=== PATIENT | male | born 1945 | race Caucasian/White ===

== ENCOUNTER 2017-04-01 13:27 | Emergency (ER) | payer MEDICARE, OTHER ==
[~2017-04-01] VITALS: Ht 162.6 cm; Wt 89.5 kg
[~2017-04-01 13:27] MED LIST: AMLO25TA PO; ASPI1TAB PO; ASPI325T PO; ATEN50TA2 PO; ATOR80TA59 PO; CLOP75TA2 PO; COLA100C5 PO; ERYT25TA PO; FLOM5CAP PO; GLIM2TAB PO; GLUC500T PO; IBUPOTC PO; LISI-538 PO; METF10004 PO; PANT40TA2 PO; SENN18TA PO; SIMV40TA2 PO
[2017-04-01] MEDS ORDERED: NS 1,000 ML IV SCH (14:05)
--- NOTE | 2017-04-01 15:00 | REP ---
CHEST, SINGLE VIEW: Single AP view of the chest is performed and compared to prior study of 05/01/2016. There is cardiomegaly. There is no acute infiltrate. Mediastinal silhouette is unchanged. IMPRESSION: Cardiomegaly with no evidence of acute infiltrate. Signed by Jerome Verdugo MD 04/01/2017 05:26 P
--- NOTE | 2017-04-01 15:15 | REP ---
CT BRAIN WITHOUT CONTRAST: CT brain is performed without IV contrast and compared to a prior CT and MRI brain 05/01/2016. There is mild diffuse atrophy. There is no midline shift. No mass effect is seen. 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 There is no acute hemorrhage. There is no extra-axial fluid collection. Bone window examination is unremarkable. IMPRESSION: Mild diffuse atrophy with old lacunar infarct in the nimo and old left occipital infarct. No acute hemorrhage or other acute finding. Signed by Jerome Verdugo MD 04/01/2017 05:26 P
[2017-04-01 15:31] LABS: BASO % 0.6 % (0.0-1.0); EOS # 0.2 K/mm3 (0.0-0.50); EOS % 2.3 % (0.0-3.0); LARGE UNSTAINED CELL # 0.1 K/mm3 (0.0-0.4); LARGE UNSTAINED CELL % 1.3 % (0.0-4.0); LYMPH # 0.7 K/mm3 (1.5-4.5); LYMPH % 8.9 % (24.0-44.0); MEAN CORPUSCULAR HEMOGLOBIN 30.7 pg (27.0-33.0); MEAN CORPUSCULAR HGB CONC 33.4 g/dl (32.0-36.5); MEAN CORPUSCULAR VOLUME 91.9 fl (80.0-96.0); MONO # 0.4 K/mm3 (0.0-0.8); MONO % 6.1 % (0.0-5.0); NEUTROPHILS # 5.8 K/mm3 (1.8-7.7); NEUTROPHILS % 80.8 % (36.0-66.0); PLATELET COUNT, AUTOMATED 242 k/mm3 (150-450); RED CELL DISTRIBUTION WIDTH 13.6 % (11.5-14.5); WHITE BLOOD COUNT 7.2 K/mm3 (4.0-10.0)
[2017-04-01 15:54] LABS: ALBUMIN 4.1 GM/DL (3.2-5.2); ALBUMIN/GLOBULIN RATIO 1.24 (1.00-1.93); ALKALINE PHOSPHATASE 92 U/L (45-117); ALT/SGPT 25 U/L (12-78); ANION GAP 11 MEQ/L (8-16); AST/SGOT 25 U/L (15-37); BILIRUBIN,DIRECT 0.1 MG/DL (0.0-0.2); BILIRUBIN,TOTAL 0.5 MG/DL (0.2-1.0); BLOOD UREA NITROGEN 29 MG/DL (7-18); CALCIUM LEVEL 9.7 MG/DL (8.8-10.2); CARBON DIOXIDE LEVEL 19 MEQ/L (21-32); CHLORIDE LEVEL 107 MEQ/L (98-107); CREATININE FOR GFR 1.28 MG/DL (0.70-1.30); GLOMERULAR FILTRATION RATE 58.5 (>42); POTASSIUM SERUM 4.7 MEQ/L (3.5-5.1); SODIUM LEVEL 137 MEQ/L (136-145); TOTAL PROTEIN 7.4 GM/DL (6.4-8.2)
[2017-04-01 16:02] LABS: GLUCOSE, FASTING 34 MG/DL (83-110)
[2017-04-01] MEDS ORDERED: DEXTROSE 50% 50 ML SYRINGE IV STA (16:06)
[2017-04-01 17:30] VITALS: BP 141/75
--- NOTE | 2017-04-02 09:01 | ECGEPIP ---
Stationary ECG Study [facility] - ED Test Date: 2017-04-01 Pat Name: JOSE ANTONIO HART Department: Room: - Gender: M Broadband Engineer: REESE : 1945 Requested By: ALLEGRA AGUERO Order Number: [id number] Reading MD: Viki Garvey Measurements Intervals [place] Rate: 73 P: 89 ND: 204 QRS: -18 QRSD: 87 T: 39 QT: 384 QTc: 423 Interpretive Statements SINUS RHYTHM WITH SINUS ARRHYTHMIA MINIMAL VOLTAGE CRITERIA FOR LVH, CONSIDER NORMAL VARIANT SEPTAL MYOCARDIAL INFARCTION, OF INDETERMINATE AGE ?PRIOR INFERIOR INFARCT SIMILAR 05/01/16 Electronically Signed On 04-02-2017 9:00:41 EDT by Viki Garvey
== END 2017-04-01 17:39 | disposition home or self-care (01) ==
LOC: M ED 13:27
DX: E11.649 Type 2 diabetes mellitus with hypoglycemia without coma (principal); I51.7 Cardiomegaly; I51.9 Heart disease, unspecified; I10 Essential (primary) hypertension; K21.9 Gastro-esophageal reflux disease without esophagitis; Z86.73 Personal history of transient ischemic attack (TIA), and cerebral infarction without residual deficits; Z79.82 Long term (current) use of aspirin; Z79.84 Long term (current) use of oral hypoglycemic drugs; Z79.899 Other long term (current) drug therapy

== ENCOUNTER → 2018-04-11 | Outpatient (CLI) | payer MEDICARE ==
[2018-04-11 16:38] LABS: ANION GAP 10 MEQ/L (8-16); BLOOD UREA NITROGEN 30 MG/DL (7-18); CALCIUM LEVEL 9.1 MG/DL (8.8-10.2); CARBON DIOXIDE LEVEL 23 MEQ/L (21-32); CHLORIDE LEVEL 107 MEQ/L (98-107); CREATININE FOR GFR 1.84 MG/DL (0.70-1.30); GLOMERULAR FILTRATION RATE 38.4 (>42); GLUCOSE, FASTING 179 MG/DL (70-100); PHOSPHORUS LEVEL 2.4 MG/DL (2.5-4.9); POTASSIUM SERUM 4.7 MEQ/L (3.5-5.1); SODIUM LEVEL 140 MEQ/L (136-145)
== END ==
LOC: M WUC 13:47
DX: I77.9 Disorder of arteries and arterioles, unspecified (principal)
CPT/HCPCS: 80069

== ENCOUNTER → 2018-06-19 | Outpatient (CLI) | payer MEDICARE ==
[2018-06-19 17:56] LABS: CREATININE FOR GFR 1.54 MG/DL (0.70-1.30); GLOMERULAR FILTRATION RATE 47.1 (>42)
[2018-06-19 17:56] LABS: BLOOD UREA NITROGEN 33 MG/DL (7-18)
== END ==
LOC: M WUC 13:55
DX: E11.40 Type 2 diabetes mellitus with diabetic neuropathy, unspecified (principal)
CPT/HCPCS: 82565

== ENCOUNTER → 2021-10-20 | Outpatient (CLI) | payer MEDICARE ==
[~2021-10-20] MED LIST changes: +ASPI-1 PO; -ASPI1TAB PO; -ASPI325T PO; +ASPI81TA26 PO; +ERY-250T24 PO; -ERYT25TA PO; +FLOM0.4C39 PO; -FLOM5CAP PO; -GLIM2TAB PO; +GLIM2TAB4 PO; -LISI-538 PO; +LISI20TA33 PO; -PANT40TA2 PO; +PANT40TA29 PO; -SIMV40TA2 PO; +SIMV40TA20 PO
== END ==
LOC: M RAD 08:43
PROVIDERS: ATTEND Internal Medicine
DX: Z86.73 Personal history of transient ischemic attack (TIA), and cerebral infarction without residual deficits (principal)

== ENCOUNTER → 2022-10-05 | Outpatient (REF) | payer MEDICARE | LOC: M LAB REF 12:27 | PROVIDERS: ATTEND Internal Medicine | DX: M25.50 Pain in unspecified joint (principal) ==

== ENCOUNTER → 2023-11-05 | Outpatient (REF) | payer MEDICARE ==
[~2023-11-05] MED LIST changes: +SENN-111 PO; -SENN18TA PO
[2023-11-05 13:51] LABS: PHOSPHORUS LEVEL 2.7 MG/DL (2.4-5.1)
[2023-11-05 14:50] LABS: PTH INTACT 54.6 PG/ML (18.5-88.0)
[2023-11-05 15:07] LABS: URIC ACID 6.5 MG/DL (3.7-9.2)
== END ==
LOC: M LAB REF 12:37
PROVIDERS: ATTEND Internal Medicine
DX: N18.32 Chronic kidney disease, stage 3b (principal); M15.9 Polyosteoarthritis, unspecified

== ENCOUNTER → 2024-05-15 | Outpatient (REF) | payer OTHER ==
[2024-05-15 14:03] LABS: PHOSPHORUS LEVEL 3.1 MG/DL (2.4-5.1); PTH INTACT 69.4 PG/ML (18.5-88.0); URIC ACID 6.2 MG/DL (3.7-9.2)
== END ==
LOC: M LAB REF 12:41
PROVIDERS: ATTEND Internal Medicine
DX: N18.32 Chronic kidney disease, stage 3b (principal)

== ENCOUNTER → 2024-06-25 | Outpatient (CLI) | payer OTHER ==
[~2024-06-25] MED LIST changes: -SENN-111 PO; +SENN-165 PO
== END ==
LOC: M RAD 11:53
PROVIDERS: ATTEND Internal Medicine
DX: I87.323 Chronic venous hypertension (idiopathic) with inflammation of bilateral lower extremity (principal)